=== PATIENT | female | born 1955 ===

== ENCOUNTER 2023-05-17 11:23 | Inpatient (IN) ==
[2023-05-17] MEDS ORDERED: Magnesium Hydroxide LIQ 30 ML UDC PO PRN (12:49)
[2023-05-17] MEDS ORDERED: Albuterol HFA INHALER 8 gm MDI INH PRN (12:58)
[2023-05-17] MEDS ORDERED: Senna TAB 8.6 mg TAB PO PRN (19:23)
[2023-05-17] MEDS: Enoxaparin 30 MG/0.3 ML SYR SUBCUT SCH (20:41)
[2023-05-17] MEDS ORDERED: Senna TAB 8.6 mg TAB PO SCH (21:00)
[2023-05-18 06:05] LABS: ABS Eosinophils 0.2 10^3/uL (0.0-0.5); ABS Lymphocytes 1.8 10^3/uL (1.0-4.8); ABS Monocytes 0.6 10^3/uL (0.0-0.9); ABS Neutrophils 5.3 10^3/uL (1.5-7.6); ABS Nucleated RBC 0.02 10^3/ul; Eosinophil % 2.1 %; Hematocrit 25.1 % (35-45); Hemoglobin 8.7 g/dL (11.5-14.3); Lymphocyte % 23.2 %; Mean Corpuscular Hemoglobin 30.4 pg (27-33); Mean Corpuscular Hgb Conc 34.6 g/dL (31-36); Mean Platelet Volume 7.7 fL (7.5-11.2); Nucleated Red Blood Cells % 0.2 /100 WBC (0.0-0.4); Platelet Count 390 10^3/uL (150-450); Red Blood Count 2.86 10^6/uL (3.63-4.92); Red Cell Distribution Width 14.8 % (12-17); White Blood Count 7.9 10^3/uL (3.8-11.8)
[2023-05-18 06:28] LABS: Albumin 3.6 g/dL (3.2-5.2); Albumin/Globulin Ratio 1.3 (1-3); Calcium 8.9 mg/dL (8.6-10.3); Creatinine, Serum 0.59 mg/dL (0.51-0.95); Globulin 2.8 g/dL (2-4); Potassium 3.9 mmol/L (3.5-5.0); Total Bilirubin 0.8 mg/dL (0.2-1.0); Total Protein 6.4 g/dL (6.4-8.9); eGFR CKD-EPI 98.1 (>60)
[2023-05-18] MEDS: Cholecalciferol (VIT D3) 1,000 unit TAB PO SCH (07:42)
[2023-05-18] MEDS: Enoxaparin 30 MG/0.3 ML SYR SUBCUT SCH ×2 (07:42→20:26)
[2023-05-18] MEDS: Calcium (OSCAL) 500 mg TAB PO SCH (07:42)
[2023-05-19] MEDS: Calcium (OSCAL) 500 mg TAB PO SCH (09:25)
[2023-05-19] MEDS: Cholecalciferol (VIT D3) 1,000 unit TAB PO SCH (09:25)
[2023-05-19] MEDS: Enoxaparin 30 MG/0.3 ML SYR SUBCUT SCH ×2 (09:36→21:00)
[2023-05-20] MEDS: Cholecalciferol (VIT D3) 1,000 unit TAB PO SCH (08:14)
[2023-05-20] MEDS: Calcium (OSCAL) 500 mg TAB PO SCH (08:14)
[2023-05-20] MEDS: Enoxaparin 30 MG/0.3 ML SYR SUBCUT SCH ×2 (10:53→21:15)
[2023-05-21] MEDS: Cholecalciferol (VIT D3) 1,000 unit TAB PO SCH (08:30)
[2023-05-21] MEDS: Calcium (OSCAL) 500 mg TAB PO SCH (08:30)
[2023-05-21] MEDS: Enoxaparin 30 MG/0.3 ML SYR SUBCUT SCH ×2 (08:32→20:31)
[2023-05-22] MEDS: Cholecalciferol (VIT D3) 1,000 unit TAB PO SCH (08:08)
[2023-05-22] MEDS: Enoxaparin 30 MG/0.3 ML SYR SUBCUT SCH ×2 (08:08→21:17)
[2023-05-22] MEDS: Calcium (OSCAL) 500 mg TAB PO SCH (08:08)
[2023-05-23] MEDS: Enoxaparin 30 MG/0.3 ML SYR SUBCUT SCH ×2 (10:13→20:09)
[2023-05-23] MEDS: Calcium (OSCAL) 500 mg TAB PO SCH (10:13)
[2023-05-23] MEDS: Cholecalciferol (VIT D3) 1,000 unit TAB PO SCH (10:13)
[2023-05-24] MEDS: Cholecalciferol (VIT D3) 1,000 unit TAB PO SCH (08:30)
[2023-05-24] MEDS: Calcium (OSCAL) 500 mg TAB PO SCH (08:30)
[2023-05-24] MEDS: Enoxaparin 30 MG/0.3 ML SYR SUBCUT SCH ×2 (09:32→20:22)
[2023-05-25 07:33] LABS: ABS Eosinophils 0.1 10^3/uL (0.0-0.5); ABS Lymphocytes 1.6 10^3/uL (1.0-4.8); ABS Monocytes 0.4 10^3/uL (0.0-0.9); ABS Neutrophils 3.3 10^3/uL (1.5-7.6); Eosinophil % 1.7 %; Hematocrit 31.4 % (35-45); Hemoglobin 10.5 g/dL (11.5-14.3); Lymphocyte % 29.5 %; Mean Corpuscular Hemoglobin 29.9 pg (27-33); Mean Corpuscular Hgb Conc 33.5 g/dL (31-36); Mean Corpuscular Volume 89.1 fL (80-97); Mean Platelet Volume 7.1 fL (7.5-11.2); Platelet Count 686 10^3/uL (150-450); Red Blood Count 3.53 10^6/uL (3.63-4.92); Red Cell Distribution Width 15.6 % (12-17); White Blood Count 5.5 10^3/uL (3.8-11.8)
[2023-05-25] MEDS: Calcium (OSCAL) 500 mg TAB PO SCH (07:40)
[2023-05-25] MEDS: Cholecalciferol (VIT D3) 1,000 unit TAB PO SCH (07:40)
[2023-05-25] MEDS: Enoxaparin 30 MG/0.3 ML SYR SUBCUT SCH ×2 (07:44→20:54)
[2023-05-25 07:50] LABS: Albumin/Globulin Ratio 1.4 (1-3); Calcium 9.5 mg/dL (8.6-10.3); Creatinine, Serum 0.66 mg/dL (0.51-0.95); Globulin 2.9 g/dL (2-4); Total Bilirubin 0.8 mg/dL (0.2-1.0); Total Protein 6.9 g/dL (6.4-8.9); eGFR CKD-EPI 94.9 (>60)
[2023-05-26 05:43] VITALS: BP 107/64
[2023-05-26] MEDS: Cholecalciferol (VIT D3) 1,000 unit TAB PO SCH (07:53)
[2023-05-26] MEDS: Calcium (OSCAL) 500 mg TAB PO SCH (07:53)
[2023-05-26] MEDS: Enoxaparin 30 MG/0.3 ML SYR SUBCUT SCH (07:54)
== END 2023-05-26 10:50 | disposition home or self-care (01) | DRG 860 ==
LOC: PMRU 11:23
PROVIDERS: ADMIT Physical Medicine & Rehabilitation; ATTEND Physical Medicine & Rehabilitation